=== PATIENT | female | born 1995 | race Two or more races ===

== ENCOUNTER → 2025-05-21 | Outpatient (CLI) | payer BC, MEDICAID, SELFPAY ==
--- NOTE | 2025-05-21 | XR_ITS ---
Examination: Complete OB ultrasound greater than 14 weeks Date and time of exam: May 21, 2025, 1202 hours INDICATIONS: Encounter for supervision of normal Findings: Viable intrauterine single fetus with single amniotic sac presentation breech Cardiac motion 150 bpm Placenta posterior grade 2 Medical cord insertion 3 vessels seen Amniotic fluid index 10.5 cm Cervix 5.6 cm Right ovary 2.4 cm arterial flow Left ovary 2.7 cm arterial flow. Composite estimated gestational age based on BPD, head circumference, abdominal circumference, femur length is 28 weeks 0 days Estimated weight 1149 g. Survey of intracranial anatomy, spinal anatomy, abdominal anatomy, four-chamber heart performed with no abnormalities identified. Impression: Viable intrauterine gestation in breech presentation.
== END | disposition home or self-care (01) ==
PROVIDERS: PCP Family Medicine; Referring Provider Obstetrics & Gynecology; Visit Provider Obstetrics & Gynecology
DX: O32.1XX0 Maternal care for breech presentation, not applicable or unspecified (principal); Z3A.28 28 weeks gestation of pregnancy
CPT/HCPCS: 76805